=== PATIENT | female | born 1965 | race Caucasian/White ===

== ENCOUNTER 2025-07-29 02:00 | Observation (INO) | payer OTHER, SELFPAY ==
[2025-07-28 20:35] VITALS: BP 90/71
--- NOTE | 2025-07-28 20:57 | ED.GENMED ---
History of Present Illness
General
Chief Complaint: Dizziness
Source: patient
Exam Limitations: none
Time Seen by Provider: 07/28/25 20:57
History of Present Illness
History of Present Illness:
59yoF with a history of hyperlipidemia and hypothyroidism presenting for evaluation after a syncopal episode. Patient was sitting at a restaurant about 1.5 hours ago. She finished eating her meal and was about to leave when she suddenly started to
feel nauseous and unwell. She went to stand up but was unable to and started to break out into a sweat. She then lost consciousness and was unconscious for <1 minute. No associated incontinence or postictal period. Patient denies any preceding
chest pain or dizziness. Fingerstick glucose upon EMS arrival was normal. She is now feeling back to normal and is asymptomatic. Patient had a similar episode last summer. She exercises regularly and ran 6+ miles today. She denies ever having
exertional chest pain. Of note, patient was seen by cardiology about 4 years ago due to bradycardia and underwent Holter monitoring at that time. She had a calcium score tested about 4 months ago which was 0.
Past History
Past History
ED Past Medical History: None
Social History
Living: with family (sister)
Family History
Family History: Other (father with mi @ 50)
Phy Exam
General Physical Exam
General Presentation: well appearing and no apparent distress
General Skin: warm and dry
General Habitus: normal
General Mental: alert
ENT Exam
ENT Exam: normocephalic
Cardiovascular Exam
Cardiovascular Exam: regular rate/rhythm, no edema and no murmur
Pulmonary Exam
Pulmonary Exam: lungs clear, no respiratory distress, no rales, no crackles, no rhonchi and no wheezing
Neurological Exam
Neurological Exam: alert
[place] Coma Scale
Eye Opening: Spontaneous
Verbal Response: Oriented
Motor Response: Obeys Commands
GCS Total Score: 15
Skin Exam
Skin Exam: normal color and warm/dry
Psychiatric Exam
Psychiatric Exam: normal mood/affect
Course
Orders/Labs/Results
Orders:
Orders
07/28/25 20:38
Electrocardiogram (*1) Urgent
Reason for Study: Chest Pain
EKG- Treatment ONCE
07/28/25 20:48
Complete Blood Count/With Diff Urgent
Comprehensive Metabolic Panel Urgent
Troponin I Urgent
07/28/25 21:24
Cardiac Monitoring- Treatment ONCE
EKG- Treatment ONCE
0.9% Sodium Chloride 1000 ml [Nss] 1,000 ml IV BOLUS
07/28/25 23:30
Electrocardiogram (*1) Urgent
Reason for Study: Syncope
07/28/25 23:32
Troponin I Urgent
Abnormal Lab Results
07/28/25 07/28/25
20:48 23:32
Absolute Neuts (auto) 6.7 H 10^3/uL
(1.4-6.5)
BUN 33 H mg/dl
(7-17)
Glucose 102 H mg/dl
(70-99)
AST 41 H U/L
(14-36)
Troponin I 0.042 H* ng/ml
07/28/25 20:48
07/28/25 20:48
Vital Signs
Initial and Last Documented VS:
Initial Vital Signs
Temp Pulse Resp BP Pulse Ox
97.4 F 72 18 90/71 95
07/28/25 20:35 07/28/25 20:35 07/28/25 20:35 07/28/25 20:35 07/28/25 20:35
Last Documented Vital Signs
Temp Pulse Resp BP Pulse Ox
97.4 F 65 15 126/80 100
07/28/25 20:35 07/28/25 21:30 07/28/25 21:30 07/28/25 21:05 07/28/25 21:30
MDM/Problems Addressed
Differential Diagnosis Includes:
59yoF here after a syncopal episode while sitting at a restaurant. Associated with diaphoresis. No CP/SOB. Now asymptomatic. BP 90/71 on arrival. Remainder of vitals normal. She is well-appearing no acute distress and exam reassuring. Differential
diagnosis includes but is not limited to: Vasovagal episode, orthostasis, dehydration, consider cardiogenic syncope, doubt PE given resolution of symptoms
Initial ED plan: Triage EKG shows normal sinus rhythm without ischemic changes or ectopy. Will check cardiac labs.
*Pulse Oximetry
SaO2: 95
Oxygen Mode of Delivery: Room air
Patient hypoxic: no (95%)
*EKG
Interpreted by ED Provider?: Yes
EKG Intrepretation Date: 07/28/25
Heart Rate: 63
Rate: normal
Rhythm: sinus
[place]: normal axis
Interval: normal interval
QRS Pattern: normal QRS
Ischemia: no ischemia
*Critical Care Note
Total Time (30-74mins, 75-104mins- exclusive of procedures): Not Applicable
Update Note
Update Note:
Initial troponin 0.034. Repeat troponin 3 hours later came back elevated at 0.042. Patient remains asymptomatic throughout ED stay and continues to deny any chest pain. Patient admitted for further evaluation and management.
ED Attending Note
-
Portions of this chart may have been created with voice recognition software.� Occasional wrong word or��sound alike� substitutions may have occurred due to the inherent limitations of voice recognition software.
Discharge Plan
Departure
Patient Disposition: Admit
Date of Disposition: 07/29/25
Time of Disposition: 00:21
Presentation/result/management discussed w/ accepting MD/DO: Hospitalist
Discharge Problem:
Syncope, Elevated troponin
Prescriptions:
No Action
cefdinir [Omnicef] 300 MG capsule
300 mg PO BID Qty: 14 0RF
Referrals:
Arlyn Gaspar CRNP [Family Provider, Family Practice]
Interventions
Interventions:
*Risk Screen - Suicide Last Done: 07/28/25 20:35
Discharge Date and Time
Print Language: CANADIAN
[2025-07-28 20:58] LABS: Hematocrit 41.8 % (37.0-47.0); Hemoglobin 14.0 g/dL (12.0-16.0); Mean Corp Hgb Conc. 33.5 g/dL (33.0-37.0); Mean Corpuscular Volume 91.9 fL (81.0-99.0); Nucleated Red Blood Cells % 0 %; Platelet Count 200 10^3/uL (130-400); Red Cell Dist. Width 12.5 % (11.5-14.5)
[2025-07-28 21:05] VITALS: BP 126/80
[2025-07-28 21:17] LABS: ALT (SGPT) 26 U/L (0-35); AST (SGOT) 41 U/L (14-36); Albumin 4.6 g/dl (3.5-5.0); Alkaline Phosphatase 66 U/L (38-126); Blood Urea Nitrogen 33 mg/dl (7-17); Calcium 9.0 mg/dl (8.4-10.2); Carbon Dioxide 28 mmol/L (22-30); Chloride 104 mmol/L (98-107); Glucose 102 mg/dl (70-99); Potassium 4.1 mmol/L (3.5-5.1); Sodium 137 mmol/L (135-145); Total Protein 6.9 g/dl (6.3-8.2); eGFR > 60.00
[2025-07-28 21:22] LABS: Troponin I 0.034 ng/ml
[2025-07-28] MEDS: NSS 1000 IV (21:35)
[2025-07-28 21:36] VITALS: BMI 25.3
[2025-07-28 22:00] VITALS: BP 119/69
[2025-07-29] VITALS: BP 124/72
[2025-07-29 00:10] LABS: Troponin I 0.042 ng/ml
[2025-07-29 01:00] VITALS: BP 126/75
--- NOTE | 2025-07-29 01:41 | HPS.HSE ---
Family Physician
-
Family Physician: Arlyn Gaspar
Chief Complaint
-
Dizziness
History of Present Illness
This is a 5-year-old female with past medical history includes hyperlipidemia and hypothyroid presents to the emergency department with episode of dizziness denied.
Patient reported that she did usual activities during the day which include running exercises. She says she did not drink as much as she normally would. She had otherwise had no other acute changes 20-day. She said the previous day she had an
episode of feeling tired but otherwise was asymptomatic. During dinner while she was sitting down she felt all of a sudden lightheaded and very very weak so she could not even move any of her muscles. This lasted several seconds and then resolved
and she was brought to the emergency department. She denied having any chest pain nausea or vomiting during this episode. She did report having diaphoresis at the time.
Patient reported similar episode a year ago with a very similar presentation of dizziness diaphoresis lasting seconds occuring twice over a 10-minute.. She states since then she has had similar episodes until today.
She stated that in 2019 she had palpitations. She could feel pulse is beating abnormally. She denied feeling dizzy or lightheaded at time. 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
Workup was otherwise negative and she has not had stable episodes since then.
She recently restarted taking rosuvastatin for hyperlipidemia. He has maintained levothyroxine. She denies any medication changes. She denies any recreational drug use. She denies any alcohol use.
In the emergency department she was afebrile, blood pressure was 126/80, pulse was 65 and she was satting 100% on room air. ECG shows a normal sinus rhythm at a rate of [address] or T wave changes. Initial troponin was 0.03, repeat
was 0.04. CBC was completely unremarkable, electrolytes BUN and creatinine were all in the normal range.
Medical History
Past Medical History
Past Medical History: Reports None
Past Surgical History: Reports Appendectomy
Social History
Tobacco: Non-smoker
Alcohol: None
Drug: None
Family History
Family History: Not pertinent
Allergies / Home Medications
Allergies reflects when Allergies were last updated in [facility].
Home Medications with original date entered in [facility]
Allergy/Medication List:
Allergies
Allergy/AdvReac Type Severity Reaction Status Date / Time
No Known Allergies Allergy Verified 07/28/25 20:34
Home Medications
Patient is not currently on any home medication.
Review of Systems
-
Constitutional: Reports No Symptoms
EENT: Reports No Symptoms
Respiratory: Reports No Symptoms
Cardiac: Reports No Symptoms
Abdomen/GI: Reports No Symptoms
: Reports No Symptoms
Musculoskeletal: Reports No Symptoms
Skin: Reports No Symptoms
Neurological: Reports No Symptoms
Endocrine: Reports No Symptoms
Hematologic/Lymphatic: Reports No Symptoms
Psych: Reports No Symptoms
Physical Exam
Vital Signs
Vital Signs
Temp Pulse Resp BP Pulse Ox
97.4 F 65 15 126/80 100
07/28/25 20:35 07/28/25 21:30 07/28/25 21:30 07/28/25 21:05 07/28/25 21:30
Physical Exam
General: Well Developed, Well Nourished and No Apparent Distress
HEENT: NormoCephalic, Moist mucous membranes and Atraumatic
Respiratory: Clear
Cardiac: S1/S2 and Regular Rhythm; No Murmur or Rub
GI: Soft, Non Tender, Non Distended and Normal Bowel Sounds; No Organomegaly
Rectal: Deferred by Provider
Musculoskeletal: No Clubbing, No Cyanosis and No Edema
Skin: No Rash
Neuro: Nonfocal/grossly intact
Laboratory Results
-
07/28/25 20:48
07/28/25 20:48
Laboratory Results
Total Bilirubin 0.4 mg/dl (0.2-1.3) 07/28/25 20:48
AST 41 U/L (14-36) H 07/28/25 20:48
ALT 26 U/L (0-35) 07/28/25 20:48
Alkaline Phosphatase 66 U/L (38-126) 07/28/25 20:48
Troponin I 0.042 ng/ml H* 07/28/25 23:32
Data Reviewed
-
Medical Tests (Nuc Med, Echo, EKG etc): Image Personally Visualized and interpreted
Lab Data: Labs Reviewed by me
Impression/Plan
-
IMPRESSION:
59-year-old with past medical history significant for hyperlipidemia, hypothyroid presenting to the emergency department with syncopal episode which she describes as dizziness while sitting down at dinner lasting several seconds and associated with
weakness. Found to have normal ECG in the ED with a troponin elevation to 0.04. She is currently without any acute symptoms.
PLAN:
Dizziness -suspect arrhythmia. Patient reports prior history of dizzy spell in the same scenario about 1 year ago. She has also seen community engagement coordinator for episode of dizziness in 2020 where she was diagnosed with bradycardia arrhythmia and possibly
mitral valve prolapse.
-Admit to telemetry observation x 24 hours
-Cycle cardiac
-Aspirin 324 x 1 and monitor
-Will hold off on anticoagulation for now
-Currently chest pain-free, consider stress test
-Consider continuous ambulatory monitoring as outpatient
-Cardiovascular panel, A1c, TSH
-Echocardiogram
-Cardiology consult
[2025-07-29 02:00] VITALS: BP 129/83
--- NOTE | 2025-07-29 03:13 | PTCARENOTE ---
07/29 Patient arrived from the ED around 0300. Patient walked from the stretcher to the bed. Patient AAO x3, vitals stable, and the call encarnacion is within reach. Trop and EKG done at admission to floor
[2025-07-29 03:14] VITALS: BP 152/79; BMI 19.5
[2025-07-29 03:59] LABS: Troponin I 0.027 ng/ml
[2025-07-29] MEDS: SYNTHROID 25 MCG PO (05:55)
[2025-07-29 06:00] VITALS: BMI 19.4
[2025-07-29 06:20] LABS: Hematocrit 41.2 % (37.0-47.0); Hemoglobin 13.7 g/dL (12.0-16.0); Mean Corp Hgb Conc. 33.3 g/dL (33.0-37.0); Mean Corpuscular Volume 90.9 fL (81.0-99.0); Platelet Count 184 10^3/uL (130-400); Red Cell Dist. Width 12.5 % (11.5-14.5)
[2025-07-29 06:41] LABS: Blood Urea Nitrogen 24 mg/dl (7-17); Calcium 9.3 mg/dl (8.4-10.2); Carbon Dioxide 25 mmol/L (22-30); Chloride 110 mmol/L (98-107); Estimated Creatinine Clearance 74 ml/min; Glucose 84 mg/dl (70-99); HDL Cholesterol 90 mg/dl; LDL Cholesterol, Calculated 92 mg/dl; Potassium 4.2 mmol/L (3.5-5.1); Sodium 141 mmol/L (135-145); Very Low Density Lipoprotein 16 mg/dl (0-30); eGFR > 60.00
[2025-07-29 06:55] LABS: Troponin I 0.042 ng/ml
[2025-07-29 07:30] VITALS: BP 126/77; BP 127/88; BP 132/78; PULSE 59; PULSE 62; PULSE 72
--- NOTE | 2025-07-29 07:59 | CON.CAR ---
Addendum entered and electronically signed by Edmund Collier MD 07/29/25 14:36:
I saw and evaluated the patient, and I provided the substantive portion of the medical decision making.
I reviewed and agree with the note by SELAM Grajeda and it accurately reflects our care.
I personally performed the medical decision making of the this encounter and my assessment and plan is below:
Imp
Likely vasovagal syncope, the lack of an obvious precipitant is the only atypical feature. But she notes 3 days in a row of aggressive exercise so perhaps mild volume contraction. I see nothing on tele of concern, mild resting sinus eun seems
appropriate for age/rest/well conditioned. Troponin is minimal and likely not important. But we have suggested that she have prompt f/u with us or her [place] corrosion engineer for echo and stress test and court monitor.
EKG OK, tele ok, careful hx obtained.
Original Note:
Consultation
Consultation Request
Date/Time Consultation Requested: 0700
Date/Time Consultation Performed: 07/29/2025 0745
Requesting Provider: Dr. Thomas
Performing Provider:
Reason for Consultation: syncope
Medical History
-
Chief Complaint: syncope
History of Present Illness:
59 y/o pt with hyperlipidemia and hypothyroidism who was eating at a restaurant yesterday and suddenly felt unwell. She describes feeling full quickly. She felt nausea, developed sweating, feeling warm and her head felt heavy. She was sitting when
this happened. She had less than 1/4 of her glass of wine. She then put her head down and her boyfriend reports she passed out. This lasted less than1 min EMS was called. She started to feel better in the ambulance put had GI upset and felt the
need to move her bowels. Since admission she has felt improved without recurrent symptoms.
-
She normally exercises 5-6 days per week. Stairmaster for 40 min or running 6 miles. No CP,palps, SOB associated with activity. She did run yesterday and felt well during and after until dinner.
She does have some degree of vasovagal with prior syncope watching medical procedures.
Past Medical History
Past Medical History: Hypercholesterolemia and Hypothyroidism
Past Surgical History: Appendectomy
Social History
Tobacco: Non-Smoker
Alcohol: Occasional
Family History
Family History: Early CAD ( Dad GA at 50 and ( also had ESRD on HD and renal transplant))
Allergies / Home Medications
Allergy/AdvReac Type Severity Reaction Status Date / Time
No Known Allergies Allergy Verified 07/28/25 20:34
�Medication �Instructions �Recorded �Confirmed �Type
levothyroxine 25 mcg tablet 25 mcg PO DAILY 07/29/25 07/29/25 History
(Synthroid)
rosuvastatin 5 mg tablet (Crestor) 5 mg PO DAILY 07/29/25 07/29/25 History
Review of Systems
-
History Source: Patient
Constitutional: No Symptoms
EENT: No Symptoms
Respiratory: No Symptoms
Cardiac: No Symptoms
Abdomen/GI: No Symptoms
Musculoskeletal: No Symptoms
Physical Exam
Vital Signs
Temp Pulse Resp BP Pulse Ox
97.9 F 60 16 152/79 100
07/29/25 03:14 07/29/25 03:14 07/29/25 03:14 07/29/25 03:14 07/29/25 03:14
Lab Results
07/29/25 06:02
07/29/25 06:02
Troponin I 0.042 ng/ml H* D 07/29/25 06:02
Physical Exam
General: Well Developed, Well Nourished and No Apparent Distress
HEENT: Normocephalic and Moist Mucous Membranes
Respiratory: Clear
Cardiac: S1/S2 and Regular Rhythm
Breast: Deferred by me
GI: Soft, Non Tender and Non Distended
Skin: Warm and Dry
Neuro: AO x 3
Psych: Calm
Impression / Plan
-
syncope:
-while sitting, pt did have prodrome
-EKG , tele stable
-no recurrent symptoms here
-troponin patel zone, will repeat
-plan OP echo and PATSY
-orthostatics this am were stable
-prior history of vasovagal type events
Hyperlipidemia:
-trial off statin resulted in elevated levels LDL in 06/2025 ( [facility] portal went to 200) no back on her statin
-[facility] portal CT calcium score 03/2024 was zero
hypothyroidism:
-on levothyroxine
Data Reviewed
-
EKG: Tracing Personally Visualized and interpreted (NSR 63 bpm)
Medical Tests (Nuc Med, Echo etc): Report Reviewed by me (Echo 07/18/20 [facility] pt portal: EF normal, MVP) and Other (PATSY 2019 [facility] pt portal: SB, NSR, PVC's, PAC's 2 episodes of mobitz type 2 )
Labs: Labs Reviewed by me, Discussed with Physician and Discussed with Patient
[2025-07-29 08:54] LABS: Glycohemoglobin (HgbA1c) 5.3 % (4.0-5.6)
[2025-07-29 11:13] VITALS: BP 123/64
[2025-07-29 11:16] LABS: Troponin I 0.021 ng/ml
--- NOTE | 2025-07-29 11:21 | W.PN.HOSP.TC ---
Addendum entered and electronically signed by Sandip Thomsa MD 07/29/25 12:54:
Please dont use billing under this note. Use billing under D/C summary
Original Note:
Today's Communication/Plan
-
see PN
Assessment / Plan
Assessment / Plan
59yo F with hypothyroidism, HLD came with episode of syncope after her dinner. Telemetry showed sinus bradycardia, similar to the one known to the patient. She reported similar presentation 1 year ago and feeling of skipped beats on occasions 5
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 No chest pain noted.
A/P:
#Syncope
Telemetry
Cardiology consult
Recommended outpatient carotid US
#Hypothyroidism
TSH midly increased: increase Synthroid and repeat TFT in 2-3 weeks with PCP
#HLD
cont home meds
#Elevated troponin
discussing with cardio: might be able to be d/c if next trop WNL
no chest pain
unclear significance
CPK WNL
DVT ppx SCDs
Full code
I have spent at least 51min reviewing chart, test results, communication with consultants and providing direct patient care
Anticipated Discharge: Within 24 hours
Subjective/Interval History
-
Date of Service: July 29, 2025
Objective Data
-
Labs:
Laboratory Results
07/29/25
06:02
WBC 8.4
Hgb 13.7
Hct 41.2
Plt Count 184
Sodium 141
Potassium 4.2
Chloride 110 H
Carbon Dioxide 25
BUN 24 H
Creatinine 0.7
Glucose 84
Calcium 9.3
Vital Signs:
Vital Signs
Temp Pulse Resp BP Pulse Ox
98.3 F 60 16 123/64 95
07/29/25 11:13 07/29/25 11:13 07/29/25 11:13 07/29/25 11:13 07/29/25 11:13
Review of Systems
-
History Source: Patient
All other systems: Reviewed and negative
Physical Exam
-
General: No Apparent Distress
HEENT: Normocephalic
Cardiac: Regular Rhythm
Neuro: Awake, Alert, Oriented and AO x 3
Psych: Calm
--- NOTE | 2025-07-29 12:53 | W.DCSUMMARY ---
Discharge Summary
Discharge Data
Date of Admission: 07/29/25
Date of Discharge: 07/29/25
-
Pending Results: No
Hospital Course
59yo F with hypothyroidism, HLD came with episode of syncope after her dinner. Telemetry showed sinus bradycardia, similar to the one known to the patient. She reported similar presentation 1 year ago and feeling of skipped beats on occasions 5
years ago, that prompted her PCP to place 2 week equipment monitor phototypesetting, that showed bradycardia. No chest pain noted. As per cardiology - patient can see her barley steeper oin [facility] or come back to or group for outpatient Echo and Hoter. Troponin normalized.
US carotids with PCPC also recommended. Synthroid increased - TFT with PCP in 2-3 weeks. As per agreement with barley steeper- medically stable to be d/c home.
I have spent at least 51min reviewing chart, test results, communication with consultants and providing direct patient care
Patient was managed for:
#Syncope
#Hypothyroidism
#HLD
#Elevated troponin
Discharge Plan
-
Patient Disposition: Home (Routine Discharge)
Discharge Diagnosis/Procedures: syncope
Diet: Regular
Activity: As tolerated
Referrals:
Tiara Morton NP [Specified Professional Personl, Cardiology]
Referral Note: Office will call to to arrange OP echo, equipment monitor phototypesetting and follow up appointment
Arlyn Gaspar CRNP [Family Provider, Family Practice] - in two to three weeks
Referral Note: repeat thyroid function test and schedule US carotids
Prescriptions:
New
levothyroxine 25 mcg Tablet
37.5 mcg PO DAILY @ 0600 Qty: 45 0RF
Continued
rosuvastatin [Crestor] 5 mg Tablet
5 mg PO DAILY
Discontinued
levothyroxine [Synthroid] 25 mcg Tablet
25 mcg PO DAILY
Discharge Orders:
Discharge Patient (As Directed); Ordered 07/29/25
Ordered By: Sandip Thomas
Discharge Date and Time
Print Language: KINYARWANDA
--- NOTE | 2025-07-29 13:16 | PTCARENOTE ---
Discharge paperwork reviewed. IV removed. Instructions on accessing the patient portal provided to patient by this RN. Patient to be discharged to home, driven home by her significant other.
== END 2025-07-29 13:39 | disposition home or self-care (01) ==
LOC: 4 WEST ACU 02:00
PROVIDERS: Nurse Practitioner; Physician Assistant; ADMITTING PHYSICIAN Internal Medicine; ATTENDING PHYSICIAN Internal Medicine; CONSULT PHYSICIAN Internal Medicine Cardiovascular Disease; EMERGENCY PHYSICIAN Emergency Medicine; FAMILY PHYSICIAN Nurse Practitioner
DX: R55 Syncope and collapse (principal); E03.9 Hypothyroidism, unspecified; E78.00 Pure hypercholesterolemia, unspecified; R79.89 Other specified abnormal findings of blood chemistry; Z79.899 Other long term (current) drug therapy; Z82.49 Family history of ischemic heart disease and other diseases of the circulatory system
CPT/HCPCS: 80048; 80053; 80061; 82550; 83036; 84439; 84443; 84484; 85025; 85027; 93005; 99285; G0378